=== PATIENT | male | born 1965 | race Caucasian/White ===

== ENCOUNTER 2017-01-31 07:11 | Day surgery (SDC) | payer OTHER ==
[2017-01-26 08:44] LABS: HEMATOCRIT 44.9 % (40.0-51.0); HEMOGLOBIN 15.6 g/dL (13.6-17.8)
[2017-01-26 09:03] LABS: BUN (BLOOD UREA NITROGEN) 17 MG/DL (6-23); CHLORIDE, SERUM 107 MMOL/L (96-112); CO2 (CARBON DIOXIDE) 26 MMOL/L (24-34); CREATININE 0.91 MG/DL (0.70-1.30); GFR AFRICAN AMERICAN 111 ML/MIN (>=60); GFR NON AFRICAN AMERICAN 96 ML/MIN (>=60); GLUCOSE, SERUM 110 MG/DL (60-99); POTASSIUM, SERUM 4.6 MMOL/L (3.5-5.3); SODIUM, SERUM 140 MMOL/L (135-148)
--- NOTE | ~2017-01-31 | OP ---
Record Of Operation [facility] [address] [place]. [address] NAME: JOLIE SONI : 61 STATUS : [facility] [place] PAT#: [id number] AGE: 51 ADM/REG DATE : 01/31/17 MR#: [id number] REPORT SERV DATE: 01/31/17 DICTATED BY: ZEESHAN NAPOLES DATE: 01/31/17 REPORT STATUS : Draft TRANSCRIBED BY: MODL DATE: 01/31/17 DATE OF PROCEDURE: 01/31/2017 PREOPERATIVE DIAGNOSIS: Thick leukoplakia, left soft palate, 2 x 1 cm. POSTOPERATIVE DIAGNOSIS: Thick leukoplakia, left soft palate, 2 x 1 cm. PROCEDURE PERFORMED: 1. Wide local excision of left soft palate leukoplakia. 2. Simple closure of a 3 x 2 cm defect. SURGEON: Zeeshan Napoles M.D. DEPUTY SHERIFF BAILIFF: None. ANESTHESIA: General. COMPLICATIONS: None. CONDITION: Stable to recovery. 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 PROCEDURE IN DETAIL: The patient was identified in preoperative holding, taken back to the operating room, and placed supine on the operating room table. General anesthesia was established. A time-out was called. The patient and procedure were confirmed. He was prepped and draped in a standard fashion for the operation. A Nandini-Nikita mouth gag was placed. The oropharynx was exposed. The 2 x 1 cm area of thick leukoplakia on the left soft palate was visualized. 0.5 cm margin was outlined around it with needle tip cautery, and excised using the cut mode on 15, coag mode on 25. The defect was 3 x 2 cm once expanded and it was closed in a single layer using interrupted 3-0 Vicryl sutures. The patient was awakened and taken to recovery in stable condition. The specimen was sent for permanent pathology analysis, same was stitched to 12 o'clock. PH/MODL Zeeshan Napoles M.D. / [id number] CC: Zeeshan Napoles M.D.
[~2017-01-31 07:11] MED LIST: LOFIBRA160 MG PO; PRAVACHOL80 MG PO; PRIN20 PO
== END 2017-01-31 12:56 | disposition home or self-care (01) ==
LOC: SDC 07:11
PROVIDERS: Specialist
PROC: 0CB Mouth and Throat, Excision (ICD-10-PCS; principal; 2017-01-31 08:30)
DX: K13.21 Leukoplakia of oral mucosa, including tongue (principal); L83 Acanthosis nigricans; E78.00 Pure hypercholesterolemia, unspecified; F17.210 Nicotine dependence, cigarettes, uncomplicated; J44.9 Chronic obstructive pulmonary disease, unspecified; I10 Essential (primary) hypertension; Z79.899 Other long term (current) drug therapy; Z82.49 Family history of ischemic heart disease and other diseases of the circulatory system; Z98.890 Other specified postprocedural states
CPT/HCPCS: 80048; 85014; 85018; 88305; 93005; A9270-GY; J0690; J2250; J2405; J2710; J3010